=== PATIENT | female | born 2000 | race Caucasian/White ===

== ENCOUNTER 2021-10-12 02:46 | Emergency (ER) | payer OTHER ==
[2021-10-12 03:32] LABS: RED BLOOD COUNT 4.36 M/UL (4.00-5.10); WHITE BLOOD COUNT 8.4 K/UL (4.5-11.0)
[2021-10-12 04:46] LABS: BUN/CREATININE RATIO 10 (0-10)
[2021-10-13] MEDS ORDERED: ONDANSETRON ODT4 MG SL (14:24)
[2021-10-13] MEDS ORDERED: PYRIDIUM200 MG PO (14:24)
[2021-10-13] MEDS ORDERED: CEFUROXIME500 MG PO (14:24)
[2021-10-13] MEDS ORDERED: TORADOL 10 MG T10 MG PO (14:24)
== END 2021-10-12 08:45 | disposition home or self-care (01) ==
LOC: ER1 02:46
PROVIDERS: Family Medicine
DX: R10.9 Unspecified abdominal pain (principal); R10.817 Generalized abdominal tenderness
CPT/HCPCS: 80053; 81001; 83690; 84703; 85025; 96374; 99284; J1885; Q9967

== ENCOUNTER 2021-10-13 10:23 | Emergency (ER) | payer OTHER ==
[2021-10-13 11:52] LABS: HEMOGLOBIN 12.4 gm/dl (12.3-15.3); RED BLOOD COUNT 4.2 M/UL (4.00-5.10); WHITE BLOOD COUNT 6.2 K/UL (4.5-11.0)
[2021-10-13 12:28] LABS: BUN/CREATININE RATIO 9 (0-10)
[2021-10-13] MEDS ORDERED: PYRIDIUM200 MG PO (14:24)
[2021-10-13] MEDS ORDERED: ONDANSETRON ODT4 MG SL (14:24)
[2021-10-13] MEDS ORDERED: TORADOL 10 MG T10 MG PO (14:24)
[2021-10-13] MEDS ORDERED: CEFUROXIME500 MG PO (14:24)
== END 2021-10-13 14:40 | disposition home or self-care (01) ==
LOC: ER1 10:23
PROVIDERS: Physician Assistant
DX: N39.0 Urinary tract infection, site not specified (principal); E86.0 Dehydration
CPT/HCPCS: 80053; 81001; 83690; 84703; 85025; 87086; 96374; 96375; 99284; J1885; J7030

== ENCOUNTER 2022-01-21 23:53 | Emergency (ER) | payer OTHER ==
[~2022-01-21 23:53] MED LIST: CEFUROXIME500 MG PO; ONDANSETRON ODT4 MG SL; PYRIDIUM200 MG PO; TORADOL 10 MG T10 MG PO
[2022-01-22 01:41] LABS: HEMOGLOBIN 13.3 gm/dl (12.3-15.3); RED BLOOD COUNT 4.57 M/UL (4.00-5.10); WHITE BLOOD COUNT 11.7 K/UL (4.5-11.0)
[2022-01-22 02:03] LABS: BUN/CREATININE RATIO 14 (0-10)
[2022-01-22] MEDS ORDERED: BENTYL 20MG TAB20 MG PO (04:15)
[2022-01-22] MEDS ORDERED: IBUPROFEN600 MG PO (04:15)
[2022-01-22] MEDS ORDERED: ZOFRAN ODT 4 MG4 MG PO (04:15)
[2022-01-22] MEDS ORDERED: OMNICEF 300 MG300 MG PO (04:16)
== END 2022-01-22 04:38 | disposition home or self-care (01) ==
LOC: ER1 23:53
PROVIDERS: Emergency Medicine
DX: R10.813 Right lower quadrant abdominal tenderness (principal); R10.814 Left lower quadrant abdominal tenderness; R11.0 Nausea
CPT/HCPCS: 36415; 80053; 81001; 83690; 84703; 85025; 96361; 96374; 99284; J2405; Q9967

== ENCOUNTER 2022-02-19 01:03 | Emergency (ER) | payer OTHER ==
[~2022-02-19 01:03] MED LIST changes: +BENTYL 20MG TAB20 MG PO; +IBUPROFEN600 MG PO; +OMNICEF 300 MG300 MG PO; +ZOFRAN ODT 4 MG4 MG PO
[2022-02-19 02:54] LABS: HEMOGLOBIN 12.9 gm/dl (12.3-15.3); RED BLOOD COUNT 4.4 M/UL (4.00-5.10); WHITE BLOOD COUNT 11.2 K/UL (4.5-11.0)
[2022-02-19 03:31] LABS: BUN/CREATININE RATIO 12 (0-10)
== END 2022-02-19 06:20 | disposition home or self-care (01) ==
LOC: ER1 01:03
PROVIDERS: Physician Assistant
DX: R07.89 Other chest pain (principal); Z20.822 Contact with and (suspected) exposure to COVID-19
CPT/HCPCS: 71045; 80053; 81001; 82550; 82553; 83690; 84484; 84703; 85025; 85379; 93005; 96374; 99285; J1885; J2270; J2405; U0002

== ENCOUNTER 2022-02-22 13:50 | Emergency (ER) | payer OTHER ==
[2022-02-22 14:33] LABS: RED BLOOD COUNT 4.41 M/UL (4.00-5.10); WHITE BLOOD COUNT 6.5 K/UL (4.5-11.0)
[2022-02-22 14:53] LABS: BUN/CREATININE RATIO 12 (0-10)
[2022-02-22] MEDS ORDERED: BENTYL 10MG CAP10 MG PO (21:25)
[2022-02-22] MEDS ORDERED: ZOFRAN 4 MG TAB4 MG PO (21:25)
[2022-02-24 10:13] LABS: HBSAG SCREEN Negative (Negative); HCV AB <0.1 (0.0-0.9); HEP A AB, IGM Negative (Negative); HEP B CORE AB, IGM Negative (Negative)
== END 2022-02-22 21:50 | disposition home or self-care (01) ==
LOC: ER1 13:50
PROVIDERS: Emergency Medicine; Physician Assistant
DX: R10.9 Unspecified abdominal pain (principal); R11.2 Nausea with vomiting, unspecified
CPT/HCPCS: 80053; 80074; 80307; 81001; 83690; 84703; 85025; 85610; 96374; 96375; 99284; J2270; J2405; Q9967